=== PATIENT | male | born 1965 | race Caucasian/White ===

== ENCOUNTER 2024-07-01 06:36 | Outpatient (CLI) | payer OTHER, SELFPAY ==
[2024-07-01 08:13] LABS: Alanine Aminotransferase 22 U/L (6-50); Albumin Level 4.5 g/dL (3.5-5.1); Alkaline Phosphatase 50 U/L (38-126); Anion Gap 8 mmol/L (4-12); Aspartate Amino Transferase 33 U/L (17-59); Bilirubin,Total 0.8 mg/dL (0.2-1.3); Blood Urea Nitrogen 13 mg/dL (9-20); Carbon Dioxide 31 mmol/L (22-30); Chloride 100 mmol/L (98-107); Cholesterol 181 mg/dL (0-200); Estimated Glomerular Filt Rate > 60; Glucose 76 mg/dL (65-110); HDL Direct 59 mg/dL; Potassium 3.5 mmol/L (3.4-5.0); Sodium 139 mmol/L (137-145); Triglycerides 123 mg/dL (<150)
[2024-07-01 08:19] LABS: Basophils Absolute Auto 0.1 K/mm3 (0.0-0.1); Basophils Percent Auto 1.6 % (0.2-1.2); Eosinophils Absolute Auto 0.1 K/mm3 (0-0.3); Eosinophils Percent Auto 2.3 % (0-4.4); Hematocrit 44.8 % (42.0-52.0); Hemoglobin 15.1 g/dL (14.0-18.0); Immature Granulocyte Absolute 0.01 K/mm3 (0.00-0.031); Immature Granulocyte Percent A 0.2 % (0-0.5); Lymphocytes Absolute Auto 1.14 K/mm3 (0.9-3.2); Lymphocytes Percent Auto 26.8 % (18.3-44.2); Mean Corpuscular HGB Conc 33.7 g/dl (32-36); Mean Corpuscular Hemoglobin 32.5 pg (26-34); Mean Corpuscular Volume 96.6 fl (80-100); Mean Platelet Volume 10.4 fl (7.4-10.4); Monocytes Absolute Auto 0.5 K/mm3 (0.1-0.6); Monocytes Percent Auto 10.8 % (2.6-8.5); Neutrophils Absolute Auto 2.5 K/mm3 (1.3-6.7); Neutrophils Percent Auto 58.3 % (45.5-73.1); Platelet Count Result 223 k/mm3 (150-375); Red Blood Count 4.64 M/mm3 (4.6-6.20); Red Cell Distribution Width 12.5 % (11.5-14.5); White Blood Count 4.3 K/mm3 (4.5-10.0)
[2024-07-01 08:24] LABS: LDL Cholesterol Direct 85 mg/dL
[2024-07-01 08:43] LABS: Prostate Specific Antigen 3.2 ng/mL (< OR = 4.0)
[2024-07-02 12:08] LABS: CRP, High Sensitivity 2.5 mg/L
== END 2024-07-01 06:37 | disposition home or self-care (01) ==
PROVIDERS: PCP Internal Medicine; Visit Provider Internal Medicine
DX: Z12.5 Encounter for screening for malignant neoplasm of prostate (principal); E78.5 Hyperlipidemia, unspecified
CPT/HCPCS: 36415; 80053; 80061; 84153; 85025; 86141; G0103

== ENCOUNTER 2024-08-30 14:56 | Outpatient (CLI) | payer OTHER, SELFPAY ==
[2024-08-30 16:02] LABS: Alanine Aminotransferase 26 U/L (6-50); Albumin Level 4.8 g/dL (3.5-5.1); Alkaline Phosphatase 62 U/L (38-126); Aspartate Amino Transferase 35 U/L (17-59); Bilirubin,Total 0.6 mg/dL (0.2-1.3)
== END 2024-08-30 14:57 | disposition home or self-care (01) ==
PROVIDERS: PCP Internal Medicine; Visit Provider Internal Medicine
DX: B35.1 Tinea unguium (principal)
CPT/HCPCS: 36415; 80076

== ENCOUNTER 2025-01-03 06:56 | Outpatient (CLI) | payer OTHER, SELFPAY ==
--- OUTSIDE RECORDS SUMMARY | 2025-01-03 07:05 | XMS_ITS | Data Portability ---
Author Organization [facility] Address [address] [place] [address] Care Team Providers Care Passenger Rate Clerk Name Role Phone KODAK ALBRIGHT Primary Care Provider Unavailabl e Assessment Encounter Date Assessment Date Assessment LastModified by Organization Details LastModified Time 12/31/2023 12/31/2023 Continue current therapy he believes he had colonoscopy within the past 5 years we will get old records 6 months Not available 12/31/2023 21:01:49 06/28/2024 06/28/2024 we will obtain blood work give him the phone number for coronary calcium score testing pros and cons of that were discussed he will see me back in 6 months Not available 07/03/2024 13:25:11 12/30/2024 12/30/2024 blood work ordered healthy lifestyle care instructions follow up 6 months last Cologuard was in 2021 he will be due later this year [email or web address] Not available 01/01/2025 18:36:24 Plan of Treatment Reminders Order Date Submit Date Provider Last Modified By Organization Details Last Modified Time Details Appointments ANY 15 2024 03:15P Mekhi Albright MD Not available Not available Not available Lab PSA, total, serum or plasma 2024 025 [email or web address] [facility] (Lab), [address] [place], [address], 12/30/2024 21:21:09 lipid panel, serum 2024 025 [email or web address] [facility] (Lab), [address] [place], [address], 12/30/2024 21:21:09 CMP, serum or plasma [address] (Lab), [address] [place], [address], 12/30/2024 21:21:09 CBC w/ auto diff [address] (Lab), [address] [place], [address], 12/30/2024 21:21:09 PSA, total, serum or plasma 2023 024 [facility] (Lab), [address] [place], [address], 07/06/2024 15:01:23 CMP, serum or plasma 2023 024 [facility] (Lab), [address] [place], [address], 07/06/2024 14:59:46 lipid panel, serum 2023 024 [facility] (Lab), [address] [place], [address], 07/06/2024 15:00:33 CBC w/ auto diff 2023 024 [facility] (Lab), [address] [place], [address], 07/06/2024 15:00:05 unlisted lab - high-sens itivity CRP 2023 024 [facility] (Lab), [address] [place], [address], 07/06/2024 15:02:59 Referral None recorded. Procedures None recorded. Surgeries None recorded. Imaging CT, coronary calcium score 2023 024 [facility], [address], [address], [place], [address], 09/01/2024 15:47:11 Medication Orders atorvasta tin 20 mg tablet 2023 [facility], [address], [address], [place], [place], [id number], 06/28/2024 17:18:55 Patient TargetsNo targets recorded. Patient Instructions Encounter Date Encounter Id Patient Instructions Last Modified By Organization Details Last Modified Time 06/28/2024 [id number] A healthy lifestyle: care instructions [email or web address] Not available 06/28/2024 17:18:55 12/30/2024 [id number] A healthy lifestyle: care instructions [email or web address] Not available 12/30/2024 21:21:09 Reason for Referral None Reported. Results Created Date Observation Date Name Description Value Unit Range Abnormal Flag Note LastModifiedBy Organization Detail LastModifiedTime Result Notes None recorded. Problems Name Problem SNOMED Code Status Onset Date Resolution Date Notes Provider Name and Address Organization Details Recorded Time Hyperlipidemia 37175854 Active 2023 JAVED [place], [place] - [facility] 15:05:51 Problem Notes None recorded. Procedures Surgical History Date Name Laterality Status Provider Name and Address Organization Details Recorded Time Back Surgery completed Antonio Son [place] - [facility] 12/31/2023 16:33:48 Eye Surgery completed Antonio Son MA [place] - [facility] 12/31/2023 16:33:55 Joint Replacement completed Antonio Son [place] [facility] 12/31/2023 16:34:05 Knee Surgery completed JAVED [place]ae[place] - [facility] 12/31/2023 16:34:13 Vasectomy completed Antonio Son [place] [facility] 12/31/2023 16:34:24 Imaging Results None recorded. Procedure Notes None recorded. Medical Equipment None Reported. Allergies Allergen ID Allergen Name Allergen Category Reaction Reaction Severity Criticality Documentation Date Start Date Code Code System Note Provider Name and Address Organization Details Recorded Time 205408 adhesive tape environme nt,medica tion Not available Not available Not available 12/31/2023 [id number] UNK Not Available Not Available Not Available Medications Name Sig Start Date Stop Date Status Note LastModified by Organization Details LastModified Time amoxicillin 500 mg capsule TK FOUR CS PO 1 HOUR B DAPP 12/30 completed Not Available Not Available Not Available atorvastati n 20 mg tablet TAKE 1 TABLET BY MOUTH DAILY active Not Available Not Available No t Available amoxicillin 500 mg tablet TAKE 4 CAPSULES BY MOUTH 1 HOUR PRIOR TO DENTAL APPT 12/30 completed Not Available Not Available Not Available terbinafine HCl 250 mg tablet TAKE 1 TABLET BY MOUTH EVERY DAY 12/30 completed Not Available Not Available Not Available diclofenac sodium 75 mg tablet,demi yed release TAKE 1 TABLET BY MOUTH TWICE DAILY 12/30 completed Not Available Not Available Not Available Vitals Date Recorded Body weight Body mass index (BMI) Body height Heart rate Oxygen saturation Oxygen saturation in Arterial blood by Pulse oximetry Systolic blood pressure Diastolic blood pressure Provider Name and Address Organization Details Last Updated DateTime 4 438623. 42 g 33.3 kg/m2 187.96 cm 89 /min 97 % 97 % 128 mm[Hg] 84 mm[Hg] Antonio Son MA [facility] 4 16:43:21 Date Recorded Body height Body mass index (BMI) Body weight Heart rate Oxygen saturation Oxygen saturation in Arterial blood by Pulse oximetry Systolic blood pressure Diastolic blood pressure Provider Name and Address Organization Details Last Updated DateTime 4 187.96 cm 32.6 kg/m2 103715. 74 g 80 /min 98 % 98 % 114 mm[Hg] 68 mm[Hg] Teressa Mcelroy MA [facility] 4 14:21:39 Date Recorded Body height Body mass index (BMI) Body weight Heart rate Oxygen saturation Oxygen saturation in Arterial blood by Pulse oximetry Systolic blood pressure Diastolic blood pressure Provider Name and Address Organization Details Last Updated DateTime 5 187.96 cm 32.9 kg/m2 135148. 08 g 102 /min 95 % 95 % 124 mm[Hg] 80 mm[Hg] Yue Sexton MA [facility] 5 15:28:12 Social History Question Answer Notes LastModified by Organizat ion Details LastModified Time Tobacco Smoking Status Never Smoker Antonio Son MA [facility], [place] - [facility] 12/31/2023 16:32:52 Do You Have An Advance Directive? No Information n ot available 12/31/2023 What Is Your Level Of Alcohol Consumption? Occasional Information not available 12/31/2023 Are You Blind Or Do You Have Difficulty Seeing? No Information n ot available 12/31/2023 What Is Your Level Of Caffeine Consumption? Moderate Information not available 12/31/2023 In The 14 Days Before Symptom Onset, Have You Had Close Contact With A Laboratory-confirm ed COVID-19 While That Case Was Ill? No Information n ot available 06/28/2024 In The 14 Days Before Symptom Onset, Have You Had Close Contact With A Person Who Is Under Investigation For COVID-19 While That Person Was Ill? No Information not available 06/28/2024 Have You Been To An Area Known To Be High Risk For COVID-19? No Information not available 06/28/2024 Are You Currently Employed? Yes Information not available 06/28/2024 Are You Deaf Or Do You Have Serious Difficulty Hearing? No Information not available 12/31/2023 What Type Of Diet Are You Following? 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 No Information not available 12/31/2023 What Was The Date Of Your Most Recent Tobacco Screening? 12/30/2024 [email or web address] Information not available 12/30/2024 What Is Your Relationship Status? Information not available 12/31/2023 Do You Use Your Seat Belt Or Car Seat Routinely? Yes Information not available 12/31/2023 Do You Have Smoke And Carbon Monoxide Detectors In Your Home? Yes Information not available 12/31/2023 Do You Feel Stressed (tense, Restless, Nervous, Or Anxious, Or Unable To Sleep At Night)? [id number] Information not available 12/31/2023 Do You Use Any Illicit Or Recreational Drugs? No Information not available 12/31/2023 Do You Use Sunscreen Routinely? No Information not available 12/31/2023 Has Tobacco Cessation Counseling Been Provided? No Information not available 12/31/2023 Do You Or Have You Ever Used Any Other Forms Of Tobacco Or Nicotine? No Information not available 12/31/2023 Sex: Male Functional Status Question Answer Note LastModified by Organizat ion Details LastModified Time Are you able to care for yourself? Yes Information not available 12/31/2023 What is your exercise level? Occasional Information not available 12/31/2023 Mental Status None recorded. Family History Relationship Description Onset Age of this Age Resolved Age Notes LastModified by Organization Details LastModified Time Father Alcohol abuse [email or web address] Not available 12/05 16:31:07 Father Heart disease [email or web address] Not available 12/05 16:31:23 Father Hypercholest erolemia bandersonma Not available 12/05 16:32:20 Father Hypertensive disorder bandersonma Not available 12/05 16:32:29 Mother Hypercholest erolemia bandersonma Not available 12/05 16:32:20 Medical History Condition Response Coronary Artery Disease N Other N High Blood Pressure Y Atrial Fibrillation N Kidney or Bladder Problems N Thyroid Problems N GI Problems N Depression N COPD N Blood Clots N Skin Problems N Anemia N Heart Attack (NH) N Anxiety Disorder N Diabetes N Muscle, Joint, or Bone Problems N Seizures/Epilepsy N Acid Reflux (GERD) N Cancer N Stroke N Asthma N Allergies Y High Cholesterol N Hepatitis N Liver Disease N Headaches N Heart Failure N Osteoporosis N Immunizations Vaccine Type Date Status Note Provider Nam e and Address Organization Details Recorded Time Influenza, split virus, quadrivalent, preservative 9 completed J[place]ED [place], [place] - [facility] 12/30/2024 12:58:47 COVID-19, mRNA, LNP-S, PF, 30 mcg/0.3 mL dose 1 completed [place]ED [place] [facility] 12/30/2024 12:58:47 COVID-19, mRNA, LNP-S, PF, 30 mcg/0.3 mL dose 1 completed [place] [place] [facility] 12/30/2024 12:58:47 COVID-19, mRNA, LNP-S, PF, 30 mcg/0.3 mL dose 1 completed [place] [place] [facility] 12/30/2024 12:58:47 COVID-19, mRNA, LNP-S, PF, 30 mcg/0.3 mL dose 1 completed [place] [place] [facility] 12/30/2024 12:58:47 Tdap 3 completed J[facility]ED [place] [facility] 12/30/2024 12:58:47 Past Encounters Encounter ID Performer Location Encounter Start Date Encounter Closed Date Diagnosis/Indication Diagnosis SNOMED-CT Code Diagnosis ICD10 Code Diagnosis Note [id number] Kodak Albright MD [facility] (Adult Med) [address] [place] [phone] 12/31/2023 15:45:28 12/31/2023 17:24:04 Screening for cardiovascular system disease 723978756 Z13.6 Hyperlipidemia 73625373 E78.5 [id number] Kodak Albright MD [facility] [place] [address] [place] [address] 06/28/2024 14:10:14 06/28/2024 15:26:59 Obesity 750509023 E66.8 Screening for malignant neoplasm of prostate 213453297 Z12.5 Hyperlipidemia 92114355 E78.5 [id number] Kodak Albright MD [facility] [place] [address] [place] [phone] 1 12/30/2024 15:02:07 12/30/2024 15:57:37 Body mass index 30+ - obesity 821620152 Z68.32 Obesity 210421466 E66.9 Hyperlipidemia 69446305 E78.5 Screening for malignant neoplasm of prostate 171394321 Z12.5 Health Concerns Section Related Observation LastModified by Organization Detai ls LastModified Time None Recorded Concern Status LastModified by Organization Details LastModified Time None Recorded Advance Directives Directive N: Payers Encounter Date Sequence Insurance Name Policy Number Policy Downing Covered Member ID Downing Member ID Guarantor Name 12/31/2023 1 [place] [id number] [id number] 06/28/2024 [id number] 12/30/2024 [id number] Notes Date Note Type Note Provider Name and Address Organization Details Recorded Time 12/31/2023 text/html Hyperlipidemia b lood work looks goodChronic rhinitis Benadryl seems to help Kodak Albright MD Attn: [address] [facility], [place], [address], [facility] - [place] 12/31/2023 21:02:15 06/28/2024 text/html hyperlipidemia h e is taking his atorvastatin we will need some blood Kodak Albright MD Attn: [address] [place], [address], [place] [facility] 07/03/2024 13:25:48 12/30/2024 text/html overall not bad has some orthopedic complaints here and there Kodak Albright MD Attn: [address] [place], [address], [place] 01/01/2025 18:36:43
--- OUTSIDE RECORDS SUMMARY | 2025-01-03 07:05 | XMS_ITS | Clinical Summary ---
Author Organization [facility] Address [address] [place] [address] Care Team Providers Care Safety Council Director Name Role Phone Wiliam Sinha MD Unavailable [phone] Raymundo Gray MD Unavailable [phone] Source Comments [facility],non-owned Affiliates and Associated Physician Practices is amultiple site organization consisting of ambulatory clinics and hospital sitesin [place], [place], [place]. This disclosure is being madepursuant to the Care Everywhere program and may not contain all information available regarding this patient. Last updated 18.[facility] Allergies No known active allergies Medications * Be aware that medications may not be up to date on this document. Alwaysverify current medications with the patient. Medication Sig Dispensed Refills Start Date End Date Status celecoxib (CELEBREX) 200 MG capsule daily. Active Loratadine (CLARITIN) 10 MG CAPS daily. Active fluticasone propionate (FLONASE) 50 MCG/ACT nasal spray daily. Active amitriptyline (ELAVIL) 25 MG tablet Take 1 Tab by mouth at bedtime. For one week then increase to 2 q hs for one week then increase to 3 q hs thereafter. 90 Tab 4 02/20/2011 Active Active Problems Problem Noted Date Diagnosed Date Status post cervical spinal fusion 05/08/2011 Cervical spondylosis without myelopathy 02/26/20 11 Social History Tobacco Use Types Packs/Day Years Used Date Smoking Tobacco: Never Smokeless Tobacco: Never Alcohol Use Standard Drinks/Week Comments Yes 1.7 (1 standard drink = 0.6 oz p ure alcohol) Sex and Gender Information Value Date Recorded Sex Assigned at Not on file Gender Identity Not on file Sexual Orientation Not on file Last Filed Vital Signs Vital Sign Reading Time Taken Comments Blood Pressure - - Pulse - - Temperature - - Respiratory Rate - - Oxygen Saturation - - Inhaled Oxygen Concentration - - Weight 108.9 kg (240 lb) 02/20/2011 1:58 PM CDT Height 185.4 cm (6' 1 ) 02/20/2011 1:58 PM CDT Body Mass Index 31.66 02/20/2011 1:58 PM CDT Plan of Treatment Health Maintenance Due Date Last Done Comments COLOGUARD (AGES 45-75) - COL ON CA SCREENING 1967 COLON MONITORING 1967 COLONOSCOPY - COLON CA SCREENING 1967 CT COLONOGRAPHY - COLON CA SCREENING 1967 Colorectal Cancer Screening 1967 FIT - COLON CA SCREENING 1967 FLEX SIG - COLON CA SCREENING 1967 LIPID TESTING 1967 HIV SCREENING 1982 HEPATITIS C SCREENING 07/31/1985 DTAP/TDAP/TD VACCINES (1 - Tdap) 1986 HEPATITIS B VACCINE (1 of 3 - 19+ 3-dose series) 1986 PNEUMOCOCCAL VACCINE 50+ (1 of 1 - PCV) 2017 ZOSTER VACCINE (1 of 2) 2017 COVID-19 VACCINE (1 - 2023-2 5 season) 2024 INFLUENZA VACCINE (#1) 2024 DEPRESSION SCREENING 10/06/2024 HIB VACCINE Aged Out No longer eligi ble based on patient's age to complete this topic HPV VACCINE Aged Out No longer eligi ble based on patient's age to complete this topic MENINGOCOCCAL (Group B) VACC INE SHARED DECISION-MAKING Aged Out No longer eligibl e based on patient's age to complete this topic MENINGOCOCCAL GROUPS A/C/Y/W VACCINE Aged Out No longer eligible b ased on patient's age to complete this topic PNEUMOCOCCAL VACCINE Aged Out No long er eligible based on patient's age to complete this topic Care Teams Safety Council Director Relationship Specialty Start Date End Date Wiliam Sinha MD 02/20/11 Raymundo Gray MD [address] [address] Internal Medicine 02/20/11
--- OUTSIDE RECORDS SUMMARY | 2025-01-03 07:05 | XMS_ITS | Clinical Summary ---
Author Organization [facility] Care Team Providers Care Hotel Sales Manager Name Role Phone Unavailable Primary Care Provider Unavailabl e Social History Tobacco Use Types Packs/Day Years Used Date Smoking Tobacco: Never Assessed Sex and Gender Information Value Date Recorded Sex Assigned at Not on file Legal Sex Male 10:18 AM CDT Gender Identity Not on file Sexual Orientation Not on file Plan of Treatment Health Maintenance Due Date Last Done Comments Hepatitis C Virus (HCV) Screening 1967 Hepatitis B Immunization (1 of 3 - 19+ 3-dose series) 1986 Colonoscopy 2012 Colorectal Cancer Screening 2012 Cologuard 2017 Immunochemical Fecal Occult Blood 2017 Pneumococcal Immunization (5 0+ years) (1 of 1 - PCV) 2017 Zoster Immunization (1 of 2) 2017 PSA Discussion 2022 Influenza Immunization (#1) 2024 07/14/2019 SARS-COV-2 Immunization (3 - season) 2024 11/10/2020, 10/20/2020 Respiratory Syncytial Virus (RSV) Immunization (Adult) (1 - 1-dose 75+ series) 2042 DTaP/Tdap/Td Immunization Discontinued 09/22/2013 TdaP Immunization Completed 09/22/2013 Meningococcal Immunization (ACWY) Aged Out No longer eligible based on patient's age to complete this topic Pneumococcal Immunization Combined Aged Out No longer eligible based on patient's age to complete this topic Rotavirus Immunization Aged Out No lo nger eligible based on patient's age to complete this topic
--- OUTSIDE RECORDS SUMMARY | 2025-01-03 07:05 | XMS_ITS | CONTINUITY OF CARE DOCUMENT ---
Author Name chasity, chasity Address Unknown Organization [facility] Address [address] [facility] [address] [place] [address] Phone [phone] Care Team Providers Care Associate Field Service Engineer Name Role Phone Josh Card MD Unavailable JOSIAH MARTIN MD Unavailable [phone] JOSIAH MARTIN MD Unavailable [phone] PROBLEMS Condition Status Date Provider Notes TIA active Natalie Lizbeth ABNORMALEKG- 09/15 ECHO EF 68 active ? Imamnuel almeida RN MITRAL VALVE PROLAPSE active Josh Edwards OBESITY active Josh Card MD ENCOUNTERS Date Type Provider Location Encounter Diag nosis - In-person encounter Office Visit Josh Card MD [place] [facility] - In-person encounter Office Visit Josh Card MD [place] [facility] MITRAL VALVE PROLAPSEOBESITY - In-person encounter Office Visit Sachin Claire MD [place] [facility] ABNORMALEKG- 09/15 ECHO EF 68 VITAL SIGNS Date Observation Value Provider blood pressure, diastolic 80 mm[Hg] Sander Mosqueda blood pressure, systolic 129 mm[Hg] Jen Mosqueda Body Mass Index (Ratio) 32.48 kg/m2 Mercedes Mosqueda pulse rate 74 /min Venus headon oxygen saturation, oximetry 97 % Venus Mosqueda respiratory rate E&M 16 /min Alivia Mosqueda weight E&M 253 [lb_av] Venus Freeman nspa height E&M 74 [in_i] Venus Freeman val blood pressure, diastolic 93 mm[Hg] Krish Malagon RN blood pressure, systolic 135 mm[Hg] Immanuel Manas RN pulse rate 91 /min Immanuel Malagon RN oxygen saturation, oximetry 98 % Immanuel Malagon RN respiratory rate E&M 16 /min Immanuel campos RN weight E&M 230 [lb_av] Immanuel Malagon RN blood pressure, diastolic, left arm 96 mm [Hg] Nickolas Mayberry blood pressure, systolic, left arm 155 mm [Hg] Nickolas Mayberry blood pressure, diastolic, right arm 100 mm[Hg] Nickolas Mayberry blood pressure, systolic, right arm 122 m m[Hg] Nickolas Mayberry blood pressure, diastolic 100 mm[Hg] Goldsmith blood pressure, systolic 122 mm[Hg] Byron Mayberry pulse rate 98 /min Nickolas Myaberry oxygen saturation, oximetry 96 % Nickolas Mayberry respiratory rate E&M 16 /min Nickolas Mayberry weight E&M 238 [lb_av] Nickolas Mayberry ALLERGIES No Known Drug Allergies HISTORY OF MEDICATION USE Medication Status Instructions Dates Provider Indications Com ments LAMISIL ADVANCED GEL active as directed Venus Mosqueda FLONASE SUSPENSION active as neededf Nickolas Mayberry CLARITIN CAPSULE completed 1 tab daily as needed - 4 Venus Mosqueda SOCIAL HISTORY Date Observation Value Provider social history E&M Marital Statu s: L imtiaz with family/friends E thnicity: P dennis has never smoked. Smoking History: P dennis has never smoked. Josh Card MD social history reviewed E&M revi ewed - no changes required Josh Card MD physical exercise, frequency, days per week yes Venus Mosqueda alcohol use, average drinks per day social basis only Venus Mosqueda caffeine use, averag e drinks per day yes Venus Mosqueda smoking status Never smoker Josh Card MD social history reviewed E&M reviewed Immanuel Malagon RN social history E&M Marital Statu s: [employer] kitchen with family/friends E thnicity: Sachin Claire MD social history reviewed E&M reviewed Sachin Claire MD physical exercise, frequency, days per week yes [employer] caffeine use, averag e drinks per day yes [employer] alcohol use, average drinks per day social basis only [employer] smoking status Non-smoker [employer] MENTAL STATUS Date Observation Value Provider assessment of judgme nt and insight E&M Alert and oriented to time, place and person. Mood and affect are normal. Immanuel Malagon RN assessment of judgme nt and insight E&M Alert and oriented to time, place and person. Mood and affect are normal. Sachin Claire MD FAMILY HISTORY Family Member Condition Father Family History Unkno wn INSURANCE PROVIDERS Payer name Policy type / Coverage type [place] [employer] party ID [employer] [id number] TREATMENT PLAN Date Name Performer Cardiology:Cleared for surgery-- R elbow arthroscopy Josh Card MD routine with echo results :will need yrly echo Josh Card MD routine with echo re sults : B P today: 135/93 Prior BP: 122/100 (03/11/2011) E chocardiogram: Findings consistent with mitral valve prolapse. Normal aortic valve. N ormal Left Ventricular Function Right ventricular enlargement. N o pericardial effusion identified. Trace Aortic regurgitation. M ild Mitral Regurgitation. Mild tricuspid regurgitation. Left Ventricular Ejection Fraction estimated to be 68% with normal Left Ventricular Systolic Function. Right Ventricular Systolic Pressure 25 mmHg with mild Tricuspid Regurgitation. Mitral Valve Prolapse involving the anterior and posterior leaflets of the Mitral Valve. - [facility] (09/17/2011) Josh Card MD Date Name CT, Coronary Calcium Score Complete Echo Complete Echo HISTORY OF PROCEDURES Procedure Date Procedure Name Provider Procedure Notes S tatus SARAH Brown MD c ompleted EKG Josh Card MD completed EKG Sachin Claire MD completed
[2025-01-03 07:58] LABS: Eosinophils Absolute Auto 0.1 K/mm3 (0-0.3); Eosinophils Percent Auto 2.5 % (0-4.4); Hematocrit 43.3 % (42.0-52.0); Hemoglobin 15.1 g/dL (14.0-18.0); Immature Granulocyte Absolute 0.01 K/mm3 (0.00-0.031); Immature Granulocyte Percent A 0.2 % (0-0.5); Lymphocytes Absolute Auto 1.14 K/mm3 (0.9-3.2); Lymphocytes Percent Auto 28.4 % (18.3-44.2); Mean Corpuscular HGB Conc 34.9 g/dl (32-36); Mean Corpuscular Hemoglobin 33.7 pg (26-34); Mean Corpuscular Volume 96.7 fl (80-100); Mean Platelet Volume 10.3 fl (7.4-10.4); Monocytes Absolute Auto 0.5 K/mm3 (0.1-0.6); Monocytes Percent Auto 11.4 % (2.6-8.5); Neutrophils Absolute Auto 2.3 K/mm3 (1.3-6.7); Neutrophils Percent Auto 56.5 % (45.5-73.1); Platelet Count Result 220 k/mm3 (150-375); Red Blood Count 4.48 M/mm3 (4.6-6.20); Red Cell Distribution Width 12.7 % (11.5-14.5)
[2025-01-03 09:25] LABS: Alanine Aminotransferase 26 U/L (6-50); Albumin Level 4.5 g/dL (3.5-5.1); Alkaline Phosphatase 55 U/L (38-126); Anion Gap 8 mmol/L (4-12); Aspartate Amino Transferase 29 U/L (17-59); Bilirubin,Total 0.6 mg/dL (0.2-1.3); Blood Urea Nitrogen 16 mg/dL (9-20); Calcium 9.4 mg/dL (8.4-10.2); Carbon Dioxide 29 mmol/L (22-30); Chloride 102 mmol/L (98-107); Cholesterol 172 mg/dL (0-200); Estimated Glomerular Filt Rate > 60; Glucose 84 mg/dL (65-110); HDL Direct 58 mg/dL; Potassium 3.9 mmol/L (3.4-5.0); Sodium 139 mmol/L (137-145); Triglycerides 81 mg/dL (<150)
[2025-01-03 09:36] LABS: LDL Cholesterol Direct 84 mg/dL
[2025-01-03 09:52] LABS: Prostate Specific Antigen 2.5 ng/mL (< OR = 4.0)
== END 2025-01-03 06:57 | disposition home or self-care (01) ==
PROVIDERS: PCP Internal Medicine; Visit Provider Internal Medicine
DX: E78.5 Hyperlipidemia, unspecified (principal); Z12.5 Encounter for screening for malignant neoplasm of prostate
CPT/HCPCS: 36415; 80053; 80061; 84153; 85025; G0103

== ENCOUNTER 2025-04-12 09:20 | Outpatient (CLI) | payer OTHER, SELFPAY ==
--- NOTE | ~2025-04-12 | MR_ITS ---
MRI of the left shoulder Technique: Axial proton-density fat-sat images, coronal proton density fat-sat and T2 fat-sat images, and sagittal T1-weighted and T2 fat-sat images were acquired. Clinical History: Pain Findings: There is moderate AC joint degenerative change versus possible prior subacromial decompress ion. Coracoclavicular, coracoacromial, and coracohumeral ligaments appear intact. There is a probable 9 x 5 mm full-thickness tear at the very anterior, distal supraspinatus tendon in sertion. There is severe background supraspinatus and infraspinatus tendinosis. There is probable tea ring of the distal transverse ligament portion of the subscapularis tendon with perching of the bicep s tendon along the medial border of the bicipital groove. There is tendinosis of the intra-articular biceps tendon. There is moderate subscapularis tendinosis. Probable mild degenerative attenuation of the anterosuperior labrum. There is marked fluid distention of the subacromial/subdeltoid bursa. Inferior glenohumeral ligament is intact. There is minimal chondromalacia the humeral head. No muscle atrophy or edema. Impression: Probable 9 x 5 mm focal full-thickness tear at the very anterior, distal supraspinatus tendon inserti on. Probable tearing of the distal transversely midportion of the subscapularis tendon with perching of t he biceps tendon along the medial border the bicipital groove. Advanced rotator cuff tendinosis. Marked subacromial/subdeltoid bursitis. Reviewed, dictated and finalized at [facility]. Impression: Probable 9 x 5 mm focal full-thickness tear at the very anterior, distal supras pinatus tendon insertion. Probable tearing of the distal transversely midportion of the subscapularis ten don with perching of the biceps tendon along the medial border the bicipital gr oove. Advanced rotator cuff tendinosis. Marked subacromial/subdeltoid bursitis.
== END 2025-04-12 09:21 | disposition home or self-care (01) ==
LOC: GOSHIMG 09:20
PROVIDERS: PCP Orthopaedic Surgery; Visit Provider Orthopaedic Surgery
DX: M77.8 Other enthesopathies, not elsewhere classified (principal)
CPT/HCPCS: 73221

== ENCOUNTER 2025-06-23 07:44 | Outpatient (CLI) | payer OTHER, SELFPAY ==
[2025-06-23 08:18] LABS: Hematocrit 43.9 % (42.0-52.0); Hemoglobin 15.1 g/dL (14.0-18.0); Immature Granulocyte Percent A 0.0 % (0-0.5); Lymphocytes Absolute Auto 1.03 K/mm3 (0.9-3.2); Mean Corpuscular HGB Conc 34.4 g/dl (32-36); Mean Corpuscular Hemoglobin 32.7 pg (26-34); Mean Corpuscular Volume 95.0 fl (80-100); Nucleated Red Blood Cells Absolute Auto 0.000 K/mm3 (0.0-0.012); Nucleated Red Blood Cells Perc 0.0 % (0.0-0.2); Platelet Count Result 284 k/mm3 (150-375); Red Blood Count 4.62 M/mm3 (4.6-6.20); White Blood Count 3.8 K/mm3 (4.5-10.0)
[2025-06-23 08:24] LABS: Alanine Aminotransferase 26 U/L (6-50); Albumin Level 4.5 g/dL (3.5-5.1); Alkaline Phosphatase 68 U/L (38-126); Anion Gap 7 mmol/L (4-12); Aspartate Amino Transferase 35 U/L (17-59); Bilirubin,Total 0.6 mg/dL (0.2-1.3); Blood Urea Nitrogen 15 mg/dL (9-20); Calcium 9.0 mg/dL (8.4-10.2); Carbon Dioxide 29 mmol/L (22-30); Chloride 101 mmol/L (98-107); Cholesterol 190 mg/dL (0-200); Estimated Glomerular Filt Rate > 60; Glucose 92 mg/dL (65-110); HDL Direct 55 mg/dL; Potassium 4.4 mmol/L (3.4-5.0); Sodium 137 mmol/L (137-145); Total Protein 7.6 g/dL (6.3-8.2); Triglycerides 86 mg/dL (<150)
== END 2025-06-23 07:45 | disposition home or self-care (01) ==
LOC: ANHLAB 07:46
PROVIDERS: PCP Internal Medicine; Visit Provider Internal Medicine
DX: E78.5 Hyperlipidemia, unspecified (principal); Z79.899 Other long term (current) drug therapy
CPT/HCPCS: 36415; 80053; 80061; 82306; 85025

== ENCOUNTER 2025-08-25 08:15 | Outpatient (RCR) | payer OTHER, SELFPAY ==
--- NOTE | 2025-06-16 10:32 | OPREHPOC ---
Outpatient Therapy Plan of Care This is a Multidisciplinary Plan of Care that may contain components documented by all disciplines (PT, OT, and ST.) PT Problem 1 PT Problem #1 Knowledge Deficit PT Goal 1 Goal / Goal Update [place] with HEP Target Visit 4 PT Goal 2 Goal / Goal Update Report no pain consistently over 1/10 with rest and daily activity within protocol Target Visit 6 PT Problem 2 PT Problem #2 Impaired Range of Motion PT Goal 1 Goal / Goal Update 1. Patient will improve left shoulder flexion ROM to 170 degrees once allowed by protocol 2. Patient will improve left shoulder external rotation ROM to 80 degrees once allowed by protocol 3. Achieve left shoulder abduction to 120 degrees without shoulder pain Target Visit 10 PT Problem 3 PT Problem #3 Impaired Strength PT Goal 1 Goal / Goal Update Patient will progress with resistive strengthening as implemented by protocol [place] goals to follow at re-evaluation
--- NOTE | 2025-06-16 10:32 | PTOPEVAL1 ---
Assessment and note entered by Beto Judd, PT Evaluation Information Assessment Status Evaluation Diagnosis Post Op Left rotator cuff repair ICD-10 Condition Codes (PT) Pain in left shoulder M25.512 Onset 06/02/25 Subjective Information Reports that overall he is doing well. Pain is minimal at this time. He is right handed. He is laying in bed and having a lot of trouble sleeping . He is taking pain medication as needed. The tear is reported as a chronic issue which was instigated in December. Reported Pain Level Pain Score 1: Self Report Assessment PT Clinical Summary Patient presents with signs and symptoms typical of post operative rotator cuff repair. Pain is noted with shoulder motion especially eccentrics, but concentric motion was able to move into protocol restrictions this date. Patient overall appears to be doing well and controlling pain. Will benefit form skilled therapy to progress per protocol for functional presybeterian of left shoulder. Plan of Care Interventions Electrical Stimulation,Manual Therapy,Neuro Re- education,Therapeutic Activities,Therapeutic Exercise PT Services Indicated Yes Treatment Frequency and 2x/week for 10 visits Duration These treatments will address the objective and functional deficits as defined above. The patient will be advanced safely and appropriately in order for the patient to progress towards his/her prior level of function. Additional exercises will be introduced and as well as a comprehensive home exercise program upon discharge, if needed, ?to ensure carryover of functional gains achieved in the clinic. This treatment plan has been reviewed and agreement upon by the patient.
--- NOTE | 2025-08-04 10:56 | OPREHPOC ---
Outpatient Therapy Plan of Care This is a Multidisciplinary Plan of Care that may contain components documented by all disciplines (PT, OT, and ST.) PT Problem 1 PT Problem #1 Knowledge Deficit PT Goal 1 Goal / Goal Update [place] with HEP Target Visit 4 PT Goal 2 Goal / Goal Update Report no pain consistently over 1/10 with rest and daily activity within protocol Target Visit 6 PT Problem 2 PT Problem #2 Impaired Range of Motion PT Goal 1 Goal / Goal Update 1. Patient will improve left shoulder flexion ROM to 170 degrees once allowed by protocol 2. Patient will improve left shoulder external rotation ROM to 80 degrees once allowed by protocol 3. Achieve left shoulder abduction to 120 degrees without shoulder pain Target Visit 10 Progress Met PT Problem 3 PT Problem #3 Impaired Strength PT Goal 1 Goal / Goal Update 1. Improve L shoulder flexion strength to 4+/5 to assist with object lifting and manipulation 2. Improve L shoulder external rotation strength to 4+/5 to improve stabilization of shoulder during self care and ADLs Target Visit 18
--- NOTE | 2025-08-04 10:56 | PTOPPROG ---
Assessment and note entered by Bteo Judd, PT Evaluation Information Assessment Status Progress Diagnosis Post Op Left rotator cuff repair ICD-10 Condition Codes (PT) Pain in left shoulder M25.512 Onset 06/02/25 Subjective Information Reports continued progress. Patient has no concerns with ROM and has been staying diligent with frequent motion. Has initiated some strengthening with notable weakness an soreness, but no concerns with pain or progression in phase 2. 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 Assessment PT Clinical Summary Patient making excellent progress within protocol at this time. Has initiated strengthening with no concerns. Demonstrate some deficits in tone with shaking noted in lever arm positions. 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 Plan of Care Interventions Electrical Stimulation,Manual Therapy,Neuro Re- education,Therapeutic Activities,Therapeutic Exercise PT Services Indicated Yes Treatment Frequency and 2x/week for 10 visits Duration These treatments will address the objective and functional deficits as defined above. The patient will be advanced safely and appropriately in order for the patient to progress towards his/her prior level of function. Additional exercises will be introduced and as well as a comprehensive home exercise program upon discharge, if needed, ?to ensure carryover of functional gains achieved in the clinic. This treatment plan has been reviewed and agreement upon by the patient.
== END 2025-09-14 23:59 | disposition home or self-care (01) ==
LOC: ANHPT 08:15
PROVIDERS: PCP Internal Medicine; Visit Provider Orthopaedic Surgery Sports Medicine
DX: Z51.81 Encounter for therapeutic drug level monitoring (principal); Z98.890 Other specified postprocedural states; Z79.899 Other long term (current) drug therapy
CPT/HCPCS: 97035; 97110; 97140; 97161; 97530